=== PATIENT | male | born 1975 | race Hispanic/Latino ===

== ENCOUNTER 2024-08-14 22:35 | Emergency (ER) | payer SELFPAY ==
[2024-08-14 22:38] VITALS: BP 197/152
--- NOTE | 2024-08-14 22:49 | ED.GENMED ---
History of Present Illness
General
Chief Complaint: CODE
Source: ambulance crew and police
Time Seen by Provider: 08/14/24 22:48
History of Present Illness
History of Present Illness:
48-year-old male brought to the emergency room by ambulance in cardiac arrest. 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 Patient had spent the evening with his girlfriend. Per his girlfriend they went out
and had something to eat. They stopped at a [facility] to excelsior picker some toiletries. They went to the hotel room where the patient's girlfriend went into the bathroom to prepare to go to bed. While 'getting ready to be intermittent' the patient became
unresponsive. He had seizure-like activity and then became purple. 911 was called. Bystander CPR was initially initiated by hotel staff who recognized there was a problem followed by police who took over CPR. Medics arrived to find the patient
in [place]. The time of the 911 call was around 950pm. By the time the medics arrived to the emergency room with the patient they have administered 7 rounds of epinephrine as well as bicarb. His end-tidal CO2 was minimally detectable. Patient
evidently has a history of hypertension for which he takes lisinopril.
Phy Exam
Physical Exam
Physical Exam:
CODE EXAM:
VITAL SIGNS: No palpable blood pressure, no pulses, no respiration.
GENERAL EXAM: Mottled
EYES: Pupils fixed
ENT: Patient intubated
NECK: No venous distention
RESPIRATORY: Equal breath sounds with [id number] ventilation
CARDIAC: Absent heart sounds
VASCULAR: Absent pulses
ABDOMEN: Soft no masses
MUSCULOSKELETAL: Unable to evaluate strength
EXTREMITIES: No edema or contractures
SKIN: No rash
PSYCH: Mood, affect unable to evaluate
MDM/Problems Addressed
MDM/Problems Addressed:
Patient arrived in [place]. 1 round of epi and 6 minutes of CPR administered here. Bedside [id number] ultrasound shows no cardiac motion. There is lung sliding bilaterally to suggest there is no pneumothorax. Given the fact the patient has been
without a pulse for approximately 50 minutes, has fixed dilated pupils and essentially nondetectable, end-tidal carbon dioxide at this point further resuscitative efforts are considered futile. Patient was pronounced at 10:41 PM. The patient was
with a girlfriend. We do not have any contact information for next of kin at this point. Officer Jay ([place] [employer]) observed a bottle of lisinopril as well as a number of vitamins in the room. No drug paraphernalia were observed.
Discussed the patient's presentation with the chief medical director. They will place the patient on hold pending further investigation. They hope to get in contact with the patient's physician through his prescription bottle.
I am unable to identify a cause of . The possibilities include a pulmonary embolism, acute myocardial infarction, cardiac dysrhythmia. Girlfriend is unaware of any recreational drug use but this cannot be discounted as a possibility. There
is no external evidence of trauma.
*Pulse Oximetry
Patient hypoxic: yes
*Critical Care Note
Total Time (30-74mins, 75-104mins- exclusive of procedures): 45 min
comment:
Critical care statement: A total of 45 minutes of critical care time was provided for this patient. This includes the resuscitation itself, discussion with police, girlfriend, chief medical director, documentation
ED Attending Note
-
Portions of this chart may have been created with voice recognition software.� Occasional wrong word or��sound alike� substitutions may have occurred due to the inherent limitations of voice recognition software.
Discharge Plan
Departure
Patient Disposition:
Date of Disposition: 08/14/24
Time of Disposition: 22:41
Discharge Problem:
Cardiac arrest
Referrals:
UNKNOWN - PT NOT,INTERVIEWE [Family Provider]
Interventions
Interventions:
*Risk Screen - Suicide Last Done: 08/14/24 23:20
*General Assessment Last Done: 08/14/24 23:20
*Neglect/Abuse Screening Last Done: 08/14/24 23:20
*ED COVID-19 Vaccine History Last Done: 08/14/24 23:20
Discharge Date and Time
Print Language: LAO
--- NOTE | 2024-08-14 23:33 | EDRN ---
Refer to code 9 flowsheet for documentation. Pt. arrived via EMS as CPR in progress, pt. , time of called at 22:41
== END 2024-08-15 01:45 | disposition expired ==
LOC: EMR 22:35
PROVIDERS: EMERGENCY PHYSICIAN Emergency Medicine
DX: I46.9 Cardiac arrest, cause unspecified (principal); I10 Essential (primary) hypertension
CPT/HCPCS: 99282